=== PATIENT | female | born 1990 | race Caucasian/White ===

== ENCOUNTER 2021-08-11 09:34 | Emergency (ER) | payer BC, MEDICAID ==
[~2021-08-11] VITALS: Ht 162.6 cm; Wt 63.6 kg
[~2021-08-11 09:34] MED LIST: GEO20I PO; LORA1TAB PO; ONDA4TAB6 PO; OXCA150T5 PO; OXCA300T16 PO; SERT25TA PO
[2021-08-11 10:35] LABS: URINE HCG NEGATIVE (NEG)
[2021-08-11 10:36] LABS: CLARITY,URINE CLEAR (Clear); COLOR,URINE YELLOW (Yellow); GLUCOSE, URINE NEGATIVE (Neg); KETONES,URINE NEGATIVE (Neg); LEUKOCYTE ESTERASE ,URINE NEGATIVE (Neg); NITRITES, URINE NEGATIVE (Neg); OCCULT BLOOD,URINE NEGATIVE (Neg); PROTEIN,URINE NEGATIVE (Neg); UROBILINOGEN,URINE 0.2 E.U/dL (0.2-1.0)
[2021-08-11 10:37] LABS: BASOPHILS % (AUTO) 0.5 % (0-1); EOSINOPHILS % (AUTO) 0.1 % (0-6); HEMOGLOBIN 13.9 g/dl (12.0-16.0); LYMPHOCYTES # (AUTO) 0.8 X10'3 (1.1-4.8); LYMPHOCYTES % (AUTO) 25.7 % (21-51); MEAN CORPUSCULAR HGB CONC 33.9 g/dL (33.0-36.5); MEAN CORPUSCULAR VOLUME 88.6 FL (78-98); MEAN PLATELET VOLUME 9.4 FL (7.4-10.4); MONOCYTES # (AUTO) 0.7 X10'3 (0-0.9); MONOCYTES % (AUTO) 20.5 % (2-12); NEUTROPHILS # (AUTO) 1.8 X10'3 (1.8-7.7); NEUTROPHILS % (AUTO) 53.2 % (42-75); PLATELET COUNT 173 X10'3 (140-440); RED BLOOD COUNT 4.63 X10'6 (4.20-5.60); RED CELL DISTRIBUTION WIDTH 13.9 % (11.5-14.5); WHITE BLOOD COUNT 3.3 X10'3 (4.5-11.0)
[2021-08-11 10:41] LABS: UA COLLECTION TYPE CLN CATCH MIDSTREAM
[2021-08-11 11:23] LABS: LYMPHOCYTES % (MANUAL) 23.5 % (21-51); NEUTROPHILS % (MANUAL) 58.5 % (42-75); PLATELET ESTIMATE NORMAL; TOTAL CELLS COUNTED 200
--- NOTE | 2021-08-11 11:45 | NUR ---
Pt is deaf. Parents at the bedside. Pt c/o pain in LLQ. +abd pain x 1 week and N/V x 5 days.
--- NOTE | 2021-08-11 11:55 | NUR ---
[facility] in ED - 08/11/21 at 1207 by JOSÉ LUIS Pt given and understands d/c instructions. IV d/c'd, catheter was intact. Ambulatory with a steady gait.
[2021-08-11 12:37] LABS: ALANINE AMINOTRANSFERASE 22 U/L (12-78); ALBUMIN/GLOBULIN RATIO 1.1 (1.1-1.5); ALKALINE PHOSPHATASE 39 IU/L (46-116); ANION GAP 9 (8-16); ASPARTATE AMINO TRANSFERASE 17 U/L (10-37); BILIRUBIN,TOTAL 0.3 MG/DL (0.1-1.0); BLOOD UREA NITROGEN 4 MG/DL (7-18); BUN/CREATININE RATIO 6.3 (6.6-38.0); CALCIUM 8.7 MG/DL (8.5-10.1); CHLORIDE 103 MMOL/L (99-107); CREATININE 0.64 MG/DL (0.40-0.90); GLUCOSE 94 MG/DL (70-104); POTASSIUM 3.6 MMOL/L (3.5-5.1); SODIUM 139 MMOL/L (135-145); TOTAL CARBON DIOXIDE 27.4 MMOL/L (24-32); TOTAL PROTEIN 7.7 G/DL (6.4-8.2); eGFR > 90 ML/MIN
[2021-08-11] MEDS ORDERED: famotidine/PF 10 mg/ml inj IV ONE (12:45)
[2021-08-11] MEDS ORDERED: ondansetron/PF 4mg/2ml inj IV ONE (12:45)
[2021-08-11] MEDS ORDERED: normal saline 1000ML IV soln IVB ONE (12:45)
[2021-08-11 14:00] VITALS: BP 118/72
[2021-08-11] MEDS ORDERED: ONDA4TAB12 PO (14:29)
[2021-08-11] MEDS ORDERED: acetaminophen 325mg tablet PO ONE (14:30)
[2021-08-11] MEDS ORDERED: ketorolac trometh. 30mg/ml inj. IV ONE (14:30)
== END 2021-08-11 15:29 | disposition home or self-care (01) ==
LOC: ER 09:35
DX: J09.X2 Influenza due to identified novel influenza A virus with other respiratory manifestations (principal); R11.2 Nausea with vomiting, unspecified; E86.0 Dehydration; K21.9 Gastro-esophageal reflux disease without esophagitis; F31.9 Bipolar disorder, unspecified; Z88.1 Allergy status to other antibiotic agents
CPT/HCPCS: 36415; 80053; 81003; 81025; 85007; 85025; 87502; 87503; 96361; 96374; 96375; 99284; J1885; J2405; J3490; J7030